=== PATIENT | female | born 1970 | race Caucasian/White ===

== ENCOUNTER 2017-01-19 08:23 | Emergency (ER) | payer OTHER ==
[~2017-01-19] VITALS: Ht 170.2 cm; Wt 86.2 kg
[2017-01-19] MEDS ORDERED: IBUPROFEN 600 MG (09:24)
--- NOTE | 2017-01-19 09:24 | PHYS DOC ---
Past History Past Medical History: GERD, Hypertension, Hyperthyroid, IBS Past Surgical History: Hysterectomy Alcohol Use: Occasionally Drug Use: None Adult General Chief Complaint Chief Complaint: LOWER EXT PAIN HPI HPI Patient is a 46-year-old female who presents with right lower leg pain for about 2 days. She had called for an appointment at her doctor's office and they sent her here because they don't have ultrasound available. Patient has had pain on the anterior lateral aspect of her right lower leg. It started just above the ankle laterally, moved up a little more proximally, and now is located over the mid lower leg anteriorly. It is warm to the touch in the areas where it's painful, but there has been no redness or swelling. She's never had anything like this before. She has never had a blood clot. It does not feel like "francisco splints". She has been recently walking her child to school which is a change in her pattern, and she has been wearing flip-flops. She is planning to fly in a couple of weeks so was concerned about ruling out serious cause. PCP Seth Review of Systems Review of Systems Constitutional: Denies fever or chills [] Musculoskeletal: Denies back pain or joint pain or pain elsewhere than the right lower leg Integument: Denies rash or skin lesions [] Allergies Allergies Allergies Coded Allergies Type Severity Reaction Last Updated Verified No Known Drug Allergies 02/29/16 No Physical Exam Physical Exam Constitutional: Well developed, well nourished, no acute distress, non-toxic appearance. [] HENT: Normocephalic, atraumatic, bilateral external ears normal, nose normal. [ ] Eyes: conjunctiva normal, no discharge. [] Neck: Normal range of motion, no stridor. [] Skin: Warm, dry, no erythema, no rash. [] Extremities: Right leg: There is no swelling. No redness. No calf tenderness or fullness. There is tenderness to palpation over the middle of the right lower leg, pretibial. This area is mildly increased in warmth but there is no redness or other abnormality. There is some mild tenderness just proximal to the malleolus on the right ankle area. Neurologic: Alert and oriented X 3, normal motor function, normal sensory function, no focal deficits noted. [] Current Patient Data Vital Signs Vital Signs Date Time Temp Pulse Resp B/P (MAP) Pulse Ox O2 Delivery O2 Flow Rate FiO2 01/19/17 08:23 97.6 74 20 97 Room Air EKG EKG [] Radiology/Procedures Radiology/Procedures [] Course & Med Decision Making Course & Med Decision Making Pertinent Labs and Imaging studies reviewed. (See chart for details) 46-year-old female who is in good general health presents with right lower leg pain. She's had no injury. I have a low clinical suspicion for DVT, but that is her concern, so we will do an ultrasound. Ultrasound negative for DVT. I believe her pain may be related to recently starting to walk her child to school wearing flip-flops. We will treat it as some inflammation/overuse and give it a week or so. She is agreeable to that plan. See instructions. [] Dragon Disclaimer Dragon Disclaimer This chart was dictated in whole or in part using Voice Recognition software in a busy, high-work load, and often noisy Emergency Department environment. It may contain unintended and wholly unrecognized errors or omissions. Departure Departure: Impression: Primary Impression: Leg pain, left Disposition: 01 HOME, SELF-CARE Condition: STABLE Referrals: ISAAC LAMA MD (PCP) Additional Instructions: Ultrasound test was negative for blood clot. I don't have a good explanation for your pain, but it may be some inflammation of the leg muscle where it inserts on the tibia bone. Ibuprofen 600 mg every 6-8 hours regularly for pain and inflammation. Ice 15-20 minutes out of every 1-2 hours as much as possible. Gentle stretching as discussed. Wear supportive shoes at all times. If not improving in one to 2 weeks with the above, see your primary care doctor. Scripts [ibuprofen 600 mg] 600 mg TAB No Conflict Check 1 Q6-8HRS Y for pain, inflammation, #30 Prov: SOPHIA KENNY MD 01/19/17 SOPHIA KENNY MD Jan 19, 2017 09:24
[2017-01-19 09:35] VITALS: BP 105/72
--- NOTE | 2017-01-19 09:53 | RAD ---
Right lower extremity venous ultrasound, 01/19/2017 : History: Right leg pain Duplex evaluation including grayscale, color flow and spectral Doppler analysis was performed. The femoral and popliteal veins show no filling defects to suggest DVT. The visualized deep veins in the right calf are unremarkable. IMPRESSION: There is no sonographic evidence of deep vein thrombosis in the right lower extremity
== END 2017-01-19 09:35 | disposition home or self-care (01) ==
LOC: ER 08:23
DX: M79.661 Pain in right lower leg (principal); I10 Essential (primary) hypertension; K21.9 Gastro-esophageal reflux disease without esophagitis; K58.9 Irritable bowel syndrome, unspecified; E05.90 Thyrotoxicosis, unspecified without thyrotoxic crisis or storm
CPT/HCPCS: 93971; 99284-25

== ENCOUNTER → 2017-05-04 | Outpatient (CLI) | payer OTHER ==
[~2017-05-04] MED LIST: IBUPROFEN 600 MG
--- NOTE | 2017-05-22 14:26 | RAD ---
DATE: 05/04/2017 EXAM: MAMMO NIKI SCREENING BILATERAL Bilateral digital screening mammography to include digital breast tomosynthesis (3D mammography) HISTORY: Screening study. COMPARISON: None. This study was interpreted with the benefit of Computerized Aided Detection (CAD). The breast parenchyma shows scattered fibroglandular densities. Breast parenchyma level B. FINDINGS: Digital MLO and CC mammograms of both breasts were obtained. Additionally digital breast tomosynthesis (3D mammography) images of both breasts in the MLO and CC projections were performed. The patient's previous mammograms were performed at an outside institution and are unavailable for comparison at this time. Continued effort will be made to locate these mammograms and if and when they do become available a comparison will be made and addendum to this report will follow. The breast parenchyma is composed of scattered fibroglandular densities which can obscure a lesion on mammography (breast density code B). No spiculated mass is seen. No malignant appearing calcification or area of architectural distortion is noted. Digital breast tomosynthesis images demonstrate no spiculated mass or malignant appearing calcification. IMPRESSION: BI-RADS Category 1, negative. There is no mammographic evidence malignancy. Routine yearly screening mammography is recommended for follow-up. BI-RADS CATEGORY: 1 NEGATIVE RECOMMENDED FOLLOW-UP: 12M 12 MONTH FOLLOW-UP PQRS compliance statement: Patient information was entered into a reminder system with a target due date 05/04/2018 for the next mammogram. Mammography is a sensitive method for finding small breast cancers, but it does not detect them all and is not a substitute for careful clinical examination. A negative mammogram does not negate a clinically suspicious finding and should not result in delay in biopsying a clinically suspicious abnormality. "Our facility is accredited by the [employer] Mammography Program."
== END | disposition home or self-care (01) ==
LOC: MAMMO 08:33
PROVIDERS: ATTEND Family Medicine
DX: Z12.31 Encounter for screening mammogram for malignant neoplasm of breast (principal)
CPT/HCPCS: 77063; G0202; 77067